=== PATIENT | male | born 1985 | race Caucasian/White ===

== ENCOUNTER 2020-09-09 16:52 | Inpatient (IN) ==
[2020-09-09] MEDS ORDERED: Ondansetron 4 MG/2 ML VIAL IVP ONE (17:06)
[2020-09-09] MEDS ORDERED: Dexamethasone 4 MG/ML VIAL IVP ONE (17:07)
[2020-09-09] MEDS: 0.9 % Sodium Chloride 1,000 ML IVC SCH (17:43)
[2020-09-09 18:16] LABS: Basophils % 0.2 %; Hematocrit 43.8 % (37.5-50.1); Hemoglobin 14.3 g/dL (12.9-16.9); Immature Granulocytes % 0.2 % (0-4); Lymphocytes # 0.9 K/mcL (0.6-4.6); Lymphocytes % 16.8 %; Mean Corpuscular HGB Conc 32.6 g/dL (31.6-35.5); Mean Corpuscular Hemoglobin 25.8 pg (28.0-33.3); Mean Corpuscular Volume 78.9 fL (83.0-100.0); Mean Platelet Volume 11.2 fL (9.4-12.4); Monocytes # 0.3 K/mcL (0.0-1.3); Monocytes % 4.8 %; Neutrophils # 4.2 K/mcL (1.6-8.9); Platelet Count 167 K/mcL (140-400); Red Blood Count 5.55 M/mcL (4.19-5.50); Red Cell Distribution Width 14.2 % (11.5-14.5); White Blood Count 5.4 K/mcL (4.3-11.1)
[2020-09-09 18:22] LABS: INR 1.1; Prothrombin Time 13.1 Seconds (9.4-12.1)
[2020-09-09 18:24] LABS: Activated Partial Thrombo Time 31.9 Seconds (26.0-36.0)
[2020-09-09 18:38] LABS: Alanine Aminotransferase 60 Units/L (7-52); Albumin 3.8 g/dL (3.5-5.7); Albumin/Globulin Ratio 1.1 (1.1-2.2); Alkaline Phosphatase 48 Units/L (34-104); Aspartate Amino Transferase 77 Units/L (13-39); BUN/Creatinine Ratio 16 (6-26); Bilirubin,Direct 0.1 mg/dL (0.0-0.2); Bilirubin,Indirect 0.3 mg/dL (0.0-1.0); Bilirubin,Total 0.4 mg/dL (0.3-1.0); Blood Urea Nitrogen 13 mg/dL (6-20); C-Reactive Protein 78 mg/L (Less than 10); Calcium 8.4 mg/dL (8.6-10.3); Carbon Dioxide 23 mEq/L (23-29); Chloride 99 mEq/L (98-107); Globulin 3.5 g/dL (2.4-3.5); Glucose 126 mg/dL (70-105); Lactate Dehydrogenase 598 Units/L (140-271); Osmolality,Calculated 276 (280-300); Phosphorous 2.4 mg/dL (2.7-4.5); Potassium 3.8 mEq/L (3.5-5.1); Sodium 132 mEq/L (136-145); Total Protein 7.3 g/dL (6.4-8.9); Troponin I < 0.03 ng/mL (< 0.04); eGFR For African Americans > 60 (> 60); eGFR For Non-African Americans > 60 (> 60)
[2020-09-09 18:56] LABS: Ferritin 525 ng/mL (20-250)
[2020-09-09] MEDS ORDERED: Ondansetron 4 MG/2 ML VIAL IVP PRN (20:11)
[2020-09-09] MEDS ORDERED: Naloxone 0.4 MG/ML INJ IVP PRN (20:11)
[2020-09-09] MEDS: *HR* Heparin 5,000 UNIT/ML VIAL SQ SCH (21:53)
[2020-09-10] MEDS: *HR* Heparin 5,000 UNIT/ML VIAL SQ SCH (04:13)
[2020-09-10] MEDS: 0.9 % Sodium Chloride 1,000 ML IVC SCH (04:14)
[2020-09-10 07:18] LABS: Hematocrit 44.5 % (37.5-50.1); Hemoglobin 14.4 g/dL (12.9-16.9); Mean Corpuscular HGB Conc 32.4 g/dL (31.6-35.5); Mean Corpuscular Hemoglobin 26.2 pg (28.0-33.3); Mean Corpuscular Volume 81.1 fL (83.0-100.0); Mean Platelet Volume 10.4 fL (9.4-12.4); Platelet Count 178 K/mcL (140-400); Red Blood Count 5.49 M/mcL (4.19-5.50); Red Cell Distribution Width 14.3 % (11.5-14.5); White Blood Count 4.2 K/mcL (4.3-11.1)
[2020-09-10 07:43] LABS: BUN/Creatinine Ratio 20 (6-26); Blood Urea Nitrogen 14 mg/dL (6-20); Calcium 8.9 mg/dL (8.6-10.3); Carbon Dioxide 23 mEq/L (23-29); Chloride 103 mEq/L (98-107); Glucose 161 mg/dL (70-105); Osmolality,Calculated 290 (280-300); Potassium 4.4 mEq/L (3.5-5.1); Sodium 138 mEq/L (136-145); eGFR For African Americans > 60 (> 60); eGFR For Non-African Americans > 60 (> 60)
[2020-09-10 07:58] LABS: Ferritin 456 ng/mL (20-250)
[2020-09-10 08:13] LABS: Estimated Average Glucose 134 mg/dl; Hemoglobin A1C 6.3 %
[2020-09-10] MEDS ORDERED: Acetaminophen 325 MG TABLET PO PRN (08:35)
[2020-09-10] MEDS ORDERED: Dexamethasone 4 MG/ML VIAL IVP SCH (09:00)
[2020-09-10 09:31] LABS: Alanine Aminotransferase 57 Units/L (7-52); Albumin 3.7 g/dL (3.5-5.7); Albumin/Globulin Ratio 1.1 (1.1-2.2); Alkaline Phosphatase 43 Units/L (34-104); Aspartate Amino Transferase 67 Units/L (13-39); Bilirubin,Indirect 0.3 mg/dL (0.0-1.0); Bilirubin,Total 0.3 mg/dL (0.3-1.0); Creatine Kinase 1846 Units/L (30-223); Globulin 3.4 g/dL (2.4-3.5); Total Protein 7.1 g/dL (6.4-8.9)
[2020-09-10] MEDS: Ipratropium 1 PUFF INHALER IH SCH ×5 (09:45→23:55)
[2020-09-10] MEDS ORDERED: Furosemide 20 MG/2 ML VIAL IVP SCH (10:45)
[2020-09-10 10:50] LABS: C-Reactive Protein 80 mg/L (Less than 10)
[2020-09-10] MEDS ORDERED: Remdesivir 200 MG in 0.9 % Sodium Chloride 100 ML IVPB ONE (17:00)
[2020-09-10] MEDS: lisinopriL 20 MG TABLET PO SCH (23:36)
[2020-09-11] MEDS: Ipratropium 1 PUFF INHALER IH SCH ×6 (04:13→23:13)
[2020-09-11 05:14] LABS: Fibrinogen 489 mg/dL (169-393)
[2020-09-11 05:15] LABS: Basophils % 0.2 %; Hematocrit 45.8 % (37.5-50.1); Immature Granulocytes % 0.4 % (0-4); Lymphocytes # 1.1 K/mcL (0.6-4.6); Mean Corpuscular HGB Conc 30.6 g/dL (31.6-35.5); Mean Corpuscular Hemoglobin 25.6 pg (28.0-33.3); Mean Corpuscular Volume 83.7 fL (83.0-100.0); Mean Platelet Volume 10.8 fL (9.4-12.4); Monocytes # 0.6 K/mcL (0.0-1.3); Neutrophils # 7.7 K/mcL (1.6-8.9); Platelet Count 249 K/mcL (140-400); Red Blood Count 5.47 M/mcL (4.19-5.50); Red Cell Distribution Width 14.7 % (11.5-14.5); Segmented Neutrophils % 81.4 %
[2020-09-11 05:24] LABS: D-Dimer 1032 ng/mLFEU (0-500)
[2020-09-11 05:28] LABS: Alanine Aminotransferase 56 Units/L (7-52); Albumin 3.6 g/dL (3.5-5.7); Albumin/Globulin Ratio 1.1 (1.1-2.2); Alkaline Phosphatase 41 Units/L (34-104); Aspartate Amino Transferase 49 Units/L (13-39); BUN/Creatinine Ratio 25 (6-26); Bilirubin,Total 0.4 mg/dL (0.3-1.0); Blood Urea Nitrogen 21 mg/dL (6-20); Carbon Dioxide 22 mEq/L (23-29); Chloride 102 mEq/L (98-107); Globulin 3.4 g/dL (2.4-3.5); Glucose 181 mg/dL (70-105); Osmolality,Calculated 292 (280-300); Potassium 3.9 mEq/L (3.5-5.1); Sodium 137 mEq/L (136-145); White Blood Count 9.4 K/mcL (4.3-11.1); eGFR For African Americans > 60 (> 60); eGFR For Non-African Americans > 60 (> 60)
[2020-09-11 05:45] LABS: Platelet Estimate Normal (Normal)
[2020-09-11] MEDS ORDERED: *HR* Enoxaparin 40 MG/0.4 ML SYRINGE SQ SCH (07:00)
[2020-09-11] MEDS ORDERED: lisinopriL 20 MG TABLET PO SCH (09:00)
[2020-09-11] MEDS ORDERED: Furosemide 40 MG/4 ML VIAL IVP SCH (09:00)
[2020-09-11] MEDS: Dexamethasone Sodium Phos/PF 10 MG/ML VIAL IVP SCH (09:17)
[2020-09-11] MEDS: lisinopriL 20 MG TABLET PO SCH (09:17)
[2020-09-11] MEDS: Remdesivir 100 MG in 0.9 % Sodium Chloride 100 ML IVPB SCH (17:34)
[2020-09-11] MEDS: *HR* Enoxaparin 40 MG/0.4 ML SYRINGE SQ SCH (18:21)
[2020-09-12] MEDS: Ipratropium 1 PUFF INHALER IH SCH ×6 (03:15→23:00)
[2020-09-12] MEDS: *HR* Enoxaparin 40 MG/0.4 ML SYRINGE SQ SCH ×2 (05:15→17:32)
[2020-09-12 06:07] LABS: Basophils % 0.3 %; Hematocrit 42.7 % (37.5-50.1); Hemoglobin 13.9 g/dL (12.9-16.9); Immature Granulocytes % 0.5 % (0-4); Lymphocytes # 0.9 K/mcL (0.6-4.6); Lymphocytes % 14.1 %; Mean Corpuscular HGB Conc 32.6 g/dL (31.6-35.5); Mean Corpuscular Hemoglobin 26.5 pg (28.0-33.3); Mean Corpuscular Volume 81.3 fL (83.0-100.0); Mean Platelet Volume 10.4 fL (9.4-12.4); Monocytes # 0.5 K/mcL (0.0-1.3); Monocytes % 8.6 %; Neutrophils # 4.7 K/mcL (1.6-8.9); Platelet Count 284 K/mcL (140-400); Red Blood Count 5.25 M/mcL (4.19-5.50); Red Cell Distribution Width 14.6 % (11.5-14.5); Segmented Neutrophils % 76.5 %; White Blood Count 6.2 K/mcL (4.3-11.1)
[2020-09-12 06:19] LABS: Albumin 3.6 g/dL (3.5-5.7); Albumin/Globulin Ratio 1.1 (1.1-2.2); Bilirubin,Direct 0.2 mg/dL (0.0-0.2); Bilirubin,Indirect 0.3 mg/dL (0.0-1.0); Bilirubin,Total 0.5 mg/dL (0.3-1.0); Globulin 3.3 g/dL (2.4-3.5); Total Protein 6.9 g/dL (6.4-8.9)
[2020-09-12 06:20] LABS: Alanine Aminotransferase 78 Units/L (7-52); Albumin 3.5 g/dL (3.5-5.7); Alkaline Phosphatase 40 Units/L (34-104); Aspartate Amino Transferase 55 Units/L (13-39); BUN/Creatinine Ratio 33 (6-26); Bilirubin,Total 0.5 mg/dL (0.3-1.0); Blood Urea Nitrogen 23 mg/dL (6-20); Carbon Dioxide 23 mEq/L (23-29); Chloride 104 mEq/L (98-107); Globulin 3.4 g/dL (2.4-3.5); Glucose 192 mg/dL (70-105); Osmolality,Calculated 295 (280-300); Potassium 4.2 mEq/L (3.5-5.1); Sodium 138 mEq/L (136-145); Total Protein 6.9 g/dL (6.4-8.9); eGFR For African Americans > 60 (> 60); eGFR For Non-African Americans > 60 (> 60)
[2020-09-12 07:23] LABS: Platelet Estimate Normal (Normal)
[2020-09-12] MEDS: Furosemide 40 MG/4 ML VIAL IVP SCH ×2 (08:51→20:46)
[2020-09-12] MEDS: lisinopriL 20 MG TABLET PO SCH (08:51)
[2020-09-12] MEDS: Dexamethasone Sodium Phos/PF 10 MG/ML VIAL IVP SCH (08:51)
[2020-09-12] MEDS ORDERED: Pantoprazole 40 MG VIAL IVP SCH (09:00)
[2020-09-12] MEDS ORDERED: Furosemide 40 MG/4 ML VIAL IVP ONE (15:00)
[2020-09-12] MEDS: Metoprolol XL (24 HR) Succ 25 MG TAB.ER.24H PO SCH (17:31)
[2020-09-12] MEDS: Remdesivir 100 MG in 0.9 % Sodium Chloride 100 ML IVPB SCH (17:32)
[2020-09-12] MEDS: Loratadine 10 MG TABLET PO SCH (20:46)
[2020-09-13] MEDS: Ipratropium 1 PUFF INHALER IH SCH ×6 (04:11→23:56)
[2020-09-13] MEDS: *HR* Enoxaparin 40 MG/0.4 ML SYRINGE SQ SCH ×2 (05:25→16:21)
[2020-09-13 05:32] LABS: Basophils % 0.2 %; Hemoglobin 14.7 g/dL (12.9-16.9); Immature Granulocytes % 0.5 % (0-4); Lymphocytes # 1.1 K/mcL (0.6-4.6); Lymphocytes % 13.6 %; Mean Corpuscular Volume 81.4 fL (83.0-100.0); Mean Platelet Volume 10.1 fL (9.4-12.4); Monocytes # 0.7 K/mcL (0.0-1.3); Monocytes % 7.9 %; Neutrophils # 6.5 K/mcL (1.6-8.9); Platelet Count 378 K/mcL (140-400); Red Blood Count 5.65 M/mcL (4.19-5.50); Red Cell Distribution Width 14.5 % (11.5-14.5); Segmented Neutrophils % 77.8 %; White Blood Count 8.4 K/mcL (4.3-11.1)
[2020-09-13 05:54] LABS: Alanine Aminotransferase 190 Units/L (7-52); Albumin 3.7 g/dL (3.5-5.7); Albumin/Globulin Ratio 1.1 (1.1-2.2); Alkaline Phosphatase 44 Units/L (34-104); Aspartate Amino Transferase 85 Units/L (13-39); BUN/Creatinine Ratio 38 (6-26); Bilirubin,Total 0.6 mg/dL (0.3-1.0); Blood Urea Nitrogen 29 mg/dL (6-20); Calcium 9.3 mg/dL (8.6-10.3); Carbon Dioxide 25 mEq/L (23-29); Chloride 102 mEq/L (98-107); Creatine Kinase 433 Units/L (30-223); Globulin 3.5 g/dL (2.4-3.5); Glucose 194 mg/dL (70-105); Magnesium 2.2 mg/dL (1.6-2.6); Osmolality,Calculated 293 (280-300); Platelet Estimate Normal (Normal); Potassium 4.2 mEq/L (3.5-5.1); Reactive Lymphocytes Present (Not Present); Sodium 136 mEq/L (136-145); Total Protein 7.2 g/dL (6.4-8.9); eGFR For African Americans > 60 (> 60); eGFR For Non-African Americans > 60 (> 60)
[2020-09-13] MEDS: lisinopriL 20 MG TABLET PO SCH (09:49)
[2020-09-13] MEDS: Metoprolol XL (24 HR) Succ 25 MG TAB.ER.24H PO SCH (09:49)
[2020-09-13] MEDS: Furosemide 40 MG/4 ML VIAL IVP SCH ×2 (09:49→17:29)
[2020-09-13] MEDS: Dexamethasone Sodium Phos/PF 10 MG/ML VIAL IVP SCH (09:50)
[2020-09-13] MEDS ORDERED: Saline Nasal Spray 44 ML BOTTLE NS PRN (11:34)
[2020-09-13] MEDS: Remdesivir 100 MG in 0.9 % Sodium Chloride 100 ML IVPB SCH (16:21)
[2020-09-13] MEDS: Loratadine 10 MG TABLET PO SCH (19:38)
[2020-09-14] MEDS: Ipratropium 1 PUFF INHALER IH SCH ×6 (04:46→23:38)
[2020-09-14] MEDS: *HR* Enoxaparin 40 MG/0.4 ML SYRINGE SQ SCH ×2 (06:04→18:38)
[2020-09-14] MEDS: lisinopriL 20 MG TABLET PO SCH (10:04)
[2020-09-14] MEDS: Metoprolol XL (24 HR) Succ 25 MG TAB.ER.24H PO SCH (10:04)
[2020-09-14] MEDS: Furosemide 40 MG/4 ML VIAL IVP SCH ×2 (10:05→18:41)
[2020-09-14] MEDS: Dexamethasone Sodium Phos/PF 10 MG/ML VIAL IVP SCH (10:05)
[2020-09-14] MEDS: Remdesivir 100 MG in 0.9 % Sodium Chloride 100 ML IVPB SCH (17:35)
[2020-09-14] MEDS: Loratadine 10 MG TABLET PO SCH (20:18)
[2020-09-15] MEDS: Ipratropium 1 PUFF INHALER IH SCH ×3 (03:51→11:36)
[2020-09-15] MEDS: *HR* Enoxaparin 40 MG/0.4 ML SYRINGE SQ SCH (05:33)
[2020-09-15] MEDS: Furosemide 40 MG/4 ML VIAL IVP SCH (07:32)
[2020-09-15] MEDS: Dexamethasone Sodium Phos/PF 10 MG/ML VIAL IVP SCH (07:32)
[2020-09-15] MEDS: lisinopriL 20 MG TABLET PO SCH (07:33)
[2020-09-15] MEDS: Metoprolol XL (24 HR) Succ 25 MG TAB.ER.24H PO SCH (07:33)
[2020-09-15 11:12] VITALS: BP 108/64
== END 2020-09-15 16:25 | disposition home or self-care (01) | DRG 177 ==
LOC: EMEROOARM 16:52 → 3NENU 16:52 → SUATTDRO 19:59 → 3NENU 20:45 → SUATTDRO 09-10 16:07 → 2NENU 09-10 20:20
PROVIDERS: ADMIT Internal Medicine; ATTEND Pharmacist